=== PATIENT | female | born 1945 | race Caucasian/White ===

== ENCOUNTER 2017-08-21 10:40 | Emergency (ER) | payer OTHER ==
[~2017-08-21] VITALS: Ht 165.1 cm; Wt 97.6 kg
[~2017-08-21 10:40] MED LIST: ASPI81TA82 PO; CLOP75 PO; FOLI1 PO; GABA300C3 PO; LANTUSP SQ; LOSA100T PO; METF-324 PO; METO50CR PO; NAPR-576 PO; SIMV40TA PO; VITA100020 SC
[2017-08-21 10:44] VITALS: BP 177/99; PULSE 83; RESP 16; TEMP 98.1; O2SAT 100
[2017-08-21] MEDS ORDERED: APIX5TAB PO (11:23)
[2017-08-21] MEDS ORDERED: ASPI81CH6 CHEW (11:23)
[2017-08-21] MEDS ORDERED: VITATAB56 PO (11:23)
[2017-08-21] MEDS ORDERED: GABA300C5 PO (11:23)
[2017-08-21] MEDS ORDERED: NOVOLOGP2 SQ (11:23)
[2017-08-21] MEDS ORDERED: CYAN100025 SL (11:23)
[2017-08-21] MEDS ORDERED: TIMO0.5S30 EACH EYE (11:23)
[2017-08-21] MEDS ORDERED: LOSA100T3 PO (11:23)
[2017-08-21] MEDS ORDERED: FOLI400T PO (11:23)
[2017-08-21] MEDS ORDERED: INSU1INJ14 SQ (11:23)
[2017-08-21] MEDS ORDERED: METO50TA PO (11:23)
[2017-08-21] MEDS ORDERED: SIMV40TA PO (11:23)
[2017-08-21] MEDS ORDERED: ROBA500T PO (11:24)
--- NOTE | 2017-08-21 11:25 | PD ---
HPI Chief Complaint: Pain: Acute or Chronic Time Seen by Provider: 11:01 Travel History International Travel<30 days: No Contact w/Intl Traveler<30days: No Traveled to known affect area: No History of Present Illness HPI This is a 71-year-old female with history of chronic low back pain who presents today with acute low back pain not relieved with her current pain medication. Duration 3 days. She denies recent injury or trauma. She reports the pain is similar to previous flares in the past. Pain is described as aching/spasming. Worse with movement and relieved with rest. Pain is localized to the low back radiating down into the left buttocks. She denies fever, incontinence, saddle anesthesia, paresthesia or weakness of the extremities. She is followed by pain management. She is scheduled for another injection to her back. She is currently taking hydrocodone/acetaminophen for her pain. PFSH Past Medical History Hx Anticoagulant Therapy: Yes Arthritis: Yes Asthma: No Atrial Fibrillation: Yes Autoimmune Disease: No Anxiety: No Depression: No Heart Rhythm Problems: No Cancer: No Cardiovascular Problems: Yes (htn on meds, has cardiac stents) High Cholesterol: Yes Chemotherapy: No Chest Pain: No Congestive Heart Failure: No COPD: No Cerebrovascular Accident: Yes (TIA) Diabetes: Yes (TYPE 2) Patient Takes Glucophage: No Endocrine: Yes GERD: Yes Glaucoma: Yes Genitourinary: Yes (HAS BLADDER STIMULATOR) Hepatitis: No Hiatal Hernia: No Hypertension: Yes Immune Disorder: No Kidney Stones: No Medical other: Yes (R. CAROTID ARTERY BLOCKAGE - CLEARED) Musculoskeletal: Yes (ARTHRITIS, MIGUELINA KNEES, LEFT HIP REPLACEMENT; HANDS) Neurologic: Yes (NEUROPATHY BOTH FEET) Psychiatric: No Reproductive: No Respiratory: No Migraines: No Radiation Therapy: No Renal Failure: No Seizures: No Sickle Cell Disease: No Sleep Apnea: No Thyroid Disease: No Ulcer: No Tetanus Vaccination: < 5 Years Influenza Vaccination: Yes ?: Not Past Surgical History Abdominal Surgery: No AICD: No Arteriovenous Shunt: No Body Medical Devices: BLADDER STIMULATOR; LEFT HIP AND BOTH KNEES Cardiac Surgery: Yes (CARDIAC STENTS X 3 2007) Coronary Stent: Yes Ear Surgery: No Endocrine Surgery: No Eye Surgery: Yes (RIGHT CATARACT SURGERY) Genitourinary Surgery: Yes (BLADDER STIMULATOR) Gynecologic Surgery: Yes (SX FOR FERTILITY YEARS AGO) Insulin Pump: No Joint Replacement: Yes (LEFT HIP AND B/L KNEES) Oral Surgery: No Pacemaker: No Thoracic Surgery: No Other Surgery: Yes Social History Alcohol Use: No Tobacco Use: No Substance Use: No Allergies-Medications (Allergen,Severity, Reaction): Coded Allergies: diatrizoate meglumine (Verified Allergy, Severe, Rash, 08/21/17) gadobenic acid (Verified Allergy, Severe, Rash, 08/21/17) gadodiamide (Verified Allergy, Severe, Rash, 08/21/17) gadoteridol (Verified Allergy, Severe, Rash, 08/21/17) iodixanol (Verified Allergy, Severe, Rash, 08/21/17) iohexol (Verified Allergy, Severe, Rash, 08/21/17) Reported Meds & Prescriptions Reported Meds & Active Scripts Active Robaxin (Methocarbamol) 500 Mg Tab 500 Mg PO TID Reported Tresiba Flextouch Pen Inj (Insulin Degludec Inj) 300 unit/3 ML Pen Unknown Dose SQ TID Vitamin D-400 (Cholecalciferol) 400 Unit Tab Unknown Dose PO WEEKLY B-12 (Cyanocobalamin) 1,000 Mcg Subl Unknown Dose SL DAILY Folic Acid 0.4 Mg Tab Unknown Dose PO DAILY Aspirin Low Dose (Aspirin) 81 Mg Chew 81 Mg CHEW DAILY Timolol Opth Drops 0.5 % Soln 1 Drop EACH EYE BID Gabapentin 300 Mg Cap 300 Mg PO BID Losartan-Hydrochlorothiazide 100-12.5 Mg Tab 1 Tab PO DAILY Novolog Inj (Insulin Aspart) 1,000 Unit/10 Ml Vial 5-25 Units SQ ACHS Max dose at bedtime:( )units; sugars less than 70,(0) units; sugars 150-199,(5) units; sugars 200-249,(10) units; sugars 250-299,(15) units; sugars 300-349,(20)units; sugars greater than 349,(25)units Simvastatin 40 Mg Tab 40 Mg PO HS Eliquis (Apixaban) 5 Mg Tab 5 Mg PO BID Metoprolol Tartrate 50 Mg Tab 50 Mg PO DAILY Review of Systems Except as stated in HPI: all other systems reviewed are Neg General / Constitutional: No: Fever Cardiovascular: No: Chest Pain or Discomfort Respiratory: No: Shortness of Breath Gastrointestinal: No: Abdominal Pain Genitourinary: No: Dysuria Skin: No Rash Neurologic: No: Weakness Physical Exam Narrative GENERAL: Alert well-appearing female in no acute distress. Patient is resting comfortably on stretcher. SKIN: Focused skin assessment warm/dry. HEAD: Atraumatic. Normocephalic. CARDIOVASCULAR: Regular rate and rhythm. No murmur appreciated. RESPIRATORY: No accessory muscle use. Clear to auscultation. Breath sounds equal bilaterally. GASTROINTESTINAL: Abdomen soft, non-tender, nondistended. Hepatic and splenic margins not palpable. MUSCULOSKELETAL: No obvious deformities. No clubbing. No cyanosis. No edema. BACK: No CVA tenderness. No point tenderness on palpation of the spine. Tenderness to the left lumbar paraspinous musculature and left buttocks. NEUROLOGICAL: Awake and alert. Motor grossly within normal limits. Normal speech. 5 out of 5 strength in lower extremities. 2+ DTRs and legs. 2+ dorsal pedis pulse bilaterally. PSYCHIATRIC: Appropriate mood and affect; insight and judgment normal. Data Data Last Documented VS Vital Signs Date Time Temp Pulse Resp B/P (MAP) Pulse Ox O2 Delivery O2 Flow Rate FiO2 08/21/17 11:29 147/83 (104) 08/21/17 10:44 98.1 83 16 100 Orders Orders Orphenadrine Inj (Norflex Inj) (08/21/17 11:30) Dexamethasone Inj (Decadron Inj) (08/21/17 11:30) Ed Discharge Order (08/21/17 11:35) [facility] Medical Decision Making Medical Screen Exam Complete: Yes Emergency Medical Condition: Yes Differential Diagnosis Acute on chronic low back pain, sciatica, lumbar strain Narrative Course 71-year-old female with history of chronic low back pain presents with acute back pain unrelieved by her current pain medication. She denies recent injury or trauma. Her physical exam is reassuring. She has left paraspinous muscle tenderness and left buttocks tenderness. No CVA tenderness. No midline spine tenderness. She has normal neurologic exam. Patient is unable to take NSAIDs due to kidney dysfunction per patient. She reports she's been given steroid injections in the past. She will be given a shot of Decadron and Norflex in the ER. Discharged home with muscle relaxers. Instructed to take her current pain medication as prescribed. Follow-up pain management. Diagnosis Primary Impression: Low back pain Qualified Codes: M54.42 - Lumbago with sciatica, left side Referrals: Pain Management Additional Instructions: Take the muscle relaxer as needed. Take her current pain medication as prescribed. Use ice and/or heat for comfort. Follow-up with pain management on Wednesday. Scripts Methocarbamol (Robaxin) 500 Mg Tab 500 MG PO TID for Muscle Spasm, #15 TAB 0 Refills Prov: Gifty Villela 08/21/17 Disposition: 01 DISCHARGE HOME Condition: Stable Gifty Villela Aug 21, 2017 11:25
[2017-08-21 11:29] VITALS: BP 147/83
[2017-08-21] MEDS ORDERED: ORPHENADRINE INJ 60 MG/2 ML AMP IM ONE (11:30)
[2017-08-21] MEDS ORDERED: DEXAMETHASONE SOD PHOS 4 MG/ML VIAL IM ONE (11:30)
== END 2017-08-21 12:03 | disposition home or self-care (01) ==
LOC: PHEFT 10:40
DX: M54.42 Lumbago with sciatica, left side (principal); G89.29 Other chronic pain; I48.91 Unspecified atrial fibrillation; E78.00 Pure hypercholesterolemia, unspecified; E11.9 Type 2 diabetes mellitus without complications; I10 Essential (primary) hypertension; M17.0 Bilateral primary osteoarthritis of knee; Z95.5 Presence of coronary angioplasty implant and graft; Z86.73 Personal history of transient ischemic attack (TIA), and cerebral infarction without residual deficits; Z96.642 Presence of left artificial hip joint
CPT/HCPCS: 96372; 99284; J1100; J2360

== ENCOUNTER 2017-09-24 09:05 | Emergency (ER) | payer OTHER ==
[~2017-09-24] VITALS: Ht 165.1 cm; Wt 96.0 kg
[~2017-09-24 09:05] MED LIST changes: +APIX5TAB PO; +ASPI81CH6 CHEW; -ASPI81TA82 PO; -CLOP75 PO; +CYAN100025 SL; -FOLI1 PO; +FOLI400T PO; -GABA300C3 PO; +GABA300C5 PO; +INSU1INJ14 SQ; -LANTUSP SQ; -LOSA100T PO; +LOSA100T3 PO; -METF-324 PO; -METO50CR PO; +METO50TA PO; -NAPR-576 PO; +NOVOLOGP2 SQ; +ROBA500T PO; +TIMO0.5S30 EACH EYE; -VITA100020 SC; +VITATAB56 PO
[2017-09-24 09:06] VITALS: BP 145/70; PULSE 68; RESP 18; TEMP 97.9; O2SAT 99
--- NOTE | 2017-09-24 09:34 | PD ---
HPI Chief Complaint: Edema Time Seen by Provider: 09:14 Travel History International Travel<30 days: No Contact w/Intl Traveler<30days: No Traveled to known affect area: No History of Present Illness HPI This 71-year-old female presents with complaint of some fluid in her right foot. She noted some swelling of her foot. When she touches it and felt boggy. She has not had fever or chills. There is no history of injury. She does have a history of neuropathy of both feet for 20 years which has been quite painful for her. She is on Eliquis. She says the neuropathy makes it hard for her to walk. She does see Dr. mona coelho for the neuropathy and gets a monthly injection. She goes to pain management. She hasn't was recently diagnosed with atrial fibrillation [facility] Past Medical History Hx Anticoagulant Therapy: Yes (Elaquis) Arthritis: Yes Asthma: No Atrial Fibrillation: Yes Autoimmune Disease: No Anxiety: No Depression: No Heart Rhythm Problems: No Cancer: No Cardiovascular Problems: Yes (stents) High Cholesterol: Yes Chemotherapy: No Chest Pain: No Congestive Heart Failure: No COPD: No Cerebrovascular Accident: Yes (TIA) Diabetes: Yes (TYPE 2) Patient Takes Glucophage: No Diminished Hearing: No Endocrine: Yes Gastrointestinal Disorders: No GERD: Yes Glaucoma: Yes Genitourinary: Yes (HAS BLADDER STIMULATOR) Headaches: No Hepatitis: No Hiatal Hernia: No Heparin Induced Thrombocytopen: No Hypertension: Yes Immune Disorder: No Implanted Vascular Access Dvce: No Kidney Stones: No Medical other: No Musculoskeletal: Yes (ARTHRITIS, MIGUELINA KNEES, LEFT HIP REPLACEMENT; HANDS) Neurologic: Yes (NEUROPATHY BOTH FEET) Psychiatric: No Reproductive: No Respiratory: No Migraines: No Radiation Therapy: No Renal Failure: No Seizures: No Sickle Cell Disease: No Sleep Apnea: No Thyroid Disease: No Ulcer: No Tetanus Vaccination: Unknown ?: Not Past Surgical History Abdominal Surgery: No AICD: No Arteriovenous Shunt: No Body Medical Devices: BLADDER STIMULATOR; LEFT HIP AND BOTH KNEES Cardiac Surgery: Yes (CARDIAC STENTS X 3 2007) Coronary Stent: Yes Ear Surgery: No Endocrine Surgery: No Eye Surgery: Yes (RIGHT CATARACT SURGERY) Genitourinary Surgery: Yes (BLADDER STIMULATOR) Gynecologic Surgery: Yes (SX FOR FERTILITY YEARS AGO) Insulin Pump: No Joint Replacement: Yes (LEFT HIP AND B/L KNEES) Neurologic Surgery: No Oral Surgery: No Pacemaker: No Thoracic Surgery: No Other Surgery: Yes Social History Alcohol Use: No Tobacco Use: No Substance Use: No Allergies-Medications (Allergen,Severity, Reaction): Coded Allergies: diatrizoate meglumine (Verified Allergy, Severe, Rash, 09/24/17) gadobenic acid (Verified Allergy, Severe, Rash, 09/24/17) gadodiamide (Verified Allergy, Severe, Rash, 09/24/17) gadoteridol (Verified Allergy, Severe, Rash, 09/24/17) iodixanol (Verified Allergy, Severe, Rash, 09/24/17) iohexol (Verified Allergy, Severe, Rash, 09/24/17) Reported Meds & Prescriptions Reported Meds & Active Scripts Active Reported Tresiba Flextouch Pen Inj (Insulin Degludec Inj) 300 unit/3 ML Pen Unknown Dose SQ TID Vitamin D-400 (Cholecalciferol) 400 Unit Tab Unknown Dose PO WEEKLY B-12 (Cyanocobalamin) 1,000 Mcg Subl Unknown Dose SL DAILY Folic Acid 0.4 Mg Tab Unknown Dose PO DAILY Aspirin Low Dose (Aspirin) 81 Mg Chew 81 Mg CHEW DAILY Timolol Opth Drops 0.5 % Soln 1 Drop EACH EYE BID Gabapentin 300 Mg Cap 300 Mg PO BID Losartan-Hydrochlorothiazide 100-12.5 Mg Tab 1 Tab PO DAILY Novolog Inj (Insulin Aspart) 1,000 Unit/10 Ml Vial 5-25 Units SQ ACHS Max dose at bedtime:( )units; sugars less than 70,(0) units; sugars 150-199,(5) units; sugars 200-249,(10) units; sugars 250-299,(15) units; sugars 300-349,(20)units; sugars greater than 349,(25)units Simvastatin 40 Mg Tab 40 Mg PO HS Eliquis (Apixaban) 5 Mg Tab 5 Mg PO BID Metoprolol Tartrate 50 Mg Tab 50 Mg PO DAILY Review of Systems General / Constitutional: No: Fever, Chills Eyes: No: Diploplia HENT: No: Headaches Cardiovascular: No: Chest Pain or Discomfort Respiratory: No: Cough, Shortness of Breath Gastrointestinal: No: Vomiting, Diarrhea Genitourinary: No: Urgency, Frequency Musculoskeletal: Positive: Pain Skin: Positive Lumps, No Rash Endocrine: No: Heat Intolerance, Cold Intolerance Hematologic/Lymphatic: No: Easy Bruising Physical Exam Narrative GENERAL well-developed female SKIN: Focused skin assessment warm/dry. HEAD: Atraumatic. Normocephalic. EYES: Pupils equal and round. No scleral icterus. No injection or drainage. ENT: No nasal bleeding or discharge. Mucous membranes pink and moist. NECK: Trachea midline. No JVD. MUSCULOSKELETAL: No obvious deformities. No clubbing. No cyanosis. No edema. There is a blister on the posterior aspect of the right heel. It is not erythematous. It is fluid-filled. It is not tense. There is no tenderness to palpation of the calf or thigh. NEUROLOGICAL: Awake and alert. No obvious cranial nerve deficits. Motor grossly within normal limits. Normal speech. PSYCHIATRIC: Appropriate mood and affect; insight and judgment normal. Data Data Last Documented VS Vital Signs Date Time Temp Pulse Resp B/P (MAP) Pulse Ox O2 Delivery O2 Flow Rate FiO2 09/24/17 09:15 18 99 Room Air 09/24/17 09:06 97.9 68 145/70 (95) MDM Medical Decision Making Medical Screen Exam Complete: Yes Emergency Medical Condition: Yes Medical Record Reviewed: Yes Differential Diagnosis Differential includes edema, blister, neuropathy Narrative Course This appears to be an uncomplicated blister without evidence of infection. I will recommend conservative treatment. Diagnosis Primary Impression: Blister (nonthermal), right foot, initial encounter Additional Instructions: Follow-up with Dr. Chi. He, return if increasing pain or fever Disposition: 01 DISCHARGE HOME Condition: Stable Cresencio Kim MD Sep 24, 2017 09:34
== END 2017-09-24 10:01 | disposition home or self-care (01) ==
LOC: PHED 09:05
DX: S90.821A Blister (nonthermal), right foot, initial encounter (principal); G62.9 Polyneuropathy, unspecified; I10 Essential (primary) hypertension; E11.9 Type 2 diabetes mellitus without complications; E78.00 Pure hypercholesterolemia, unspecified; I48.91 Unspecified atrial fibrillation; H40.9 Unspecified glaucoma; Z86.73 Personal history of transient ischemic attack (TIA), and cerebral infarction without residual deficits; Z79.01 Long term (current) use of anticoagulants
CPT/HCPCS: 99281

== ENCOUNTER 2017-12-15 05:52 | Day surgery (SDC) | payer OTHER ==
[~2017-12-15] VITALS: Ht 165.1 cm; Wt 95.5 kg
[~2017-12-15 05:52] MED LIST changes: -ROBA500T PO
[2017-12-15 06:46] VITALS: BP 142/80; PULSE 64; RESP 20; TEMP 97.8; O2SAT 95
[2017-12-15] MEDS ORDERED: SODIUM CHLOR 0.9% 1000 ML INJ 1,000 ML IV SCH (07:00)
[2017-12-15 07:59] LABS: PROTHROMBIN TIME - PATIENT 10.5 SEC (9.8-11.6)
[2017-12-15 09:05] VITALS: BP 112/79; PULSE 56; RESP 18; TEMP 97.9; O2SAT 93
--- NOTE | 2017-12-15 09:27 | PD.RAD ---
Post Procedure Progress Note Pre Procedure Diagnosis: (1) Neuropathy Post Procedure Diagnosis: (1) Neuropathy Procedure Date: Dec 15, 2017 Supervising Radiologist: Bo Cantu Proceduralist/Assist: Cresencio Fritz, RT(R), Clover Murillo RT(R) Anesthesia: Local Plan of Activity Patient to Unit: ROPU Patient Condition: Good See PACS Report for procedural detail/treatment Bo Cantu MD Dec 15, 2017 09:27
[2017-12-15 09:34] LABS: TOTAL PROTEIN,CSF 123.9 MG/DL (15.0-45.0)
[2017-12-15 09:44] LABS: VOLUME TUBE # 1 1.9 ML
[2017-12-15 10:01] LABS: RBC TUBE #1 8 /MM3; WBC TUBE #1 10 /MM3 (0-10)
[2017-12-15 10:05] LABS: CSF LYMPHOCYTES 54 %; CSF MONOCYTES 44 %; CSF NEUTROPHILS 2 %
[2017-12-15 10:13] LABS: CSF LYMPHOCYTES 47 %; CSF MONOCYTES 16 %; CSF NEUTROPHILS 37 %; RBC TUBE #4 1203 /MM3; WBC TUBE #4 15 /MM3 (0-10)
[2017-12-15 10:24] LABS: SUPERNATE COLOR TUBE #1 CLEAR (CLEAR)
[2017-12-15 10:25] VITALS: BP 117/80; PULSE 84; RESP 18; TEMP 97.8; O2SAT 94
--- NOTE | 2017-12-15 12:20 | RADRPT ---
EXAM DATE/TIME: 12/15/2017 08:07 [place] COMPARISON: No previous studies available for comparison. INDICATIONS : Patient presents with peripheral neuropathy in need of lumbar puncture with opening and closing press ures for evaluation. MEDICAL HISTORY : DM HTN PVD CAD GERD Obesity TIA SURGICAL HISTORY : LT hip LT knee RT ankle Sridhar carpap tunnel Coronary stent Cataract Sridhar hammer toe ENCOUNTER: Initial ACUITY: 1 week PAIN SCORE: 0/10 LOCATION: N/A LUMBAR PUNCTURE TIME: 0820 hours FLUORO TIME: 0.1 minutes IMAGE SERIES: 1 ACCESS LEVEL: L2-3 OPENING PRESSURE: 14.5 cm of water CLOSING PRESSURE: 11.5 cm of water FLUID: 9 cc of clear CSF was collected and sent to the laboratory for analysis. PROCEDURE : 1. Fluoroscopic guided lumbar puncture. 2. Recording of opening pressure. The risks, benefits and alternatives to the procedure were explained and verbal and written consent w as obtained. The site was prepped in sterile fashion. Full sterile technique was used, including ca p, mask, sterile gloves and gown and a large sterile sheet. Hand hygiene and 2% chlorhexidine and/or betadine/alcohol prep was utilized per protocol for cutaneous antisepsis. The skin and subcutaneous tissues were infiltrated with local anesthetic solution. With fluoroscopic guidance the lumbar thecal sac was punctured at the above level described above and the opening pressure was recorded. The above described fluid was removed without difficulty. The patient tolerated the procedure well and there were no complications. CONCLUSION: Uncomplicated fluoroscopically guided lumbar puncture with pressures as above. Bo Cantu MD on December 15, 2017 at 12:02 Board Certified Radiologist. This report was verified electronically.
[2017-12-16 10:30] LABS: CMV DNA QUANT BY RAPID PCR Negative (Negative)
[2017-12-16 12:58] LABS: HSV 1,PCR Negative (Negative)
[2017-12-17 19:52] LABS: CSF CRYPTOCOCCUS ANTIGEN NOT DETECTED (NEGATIVE)
[2017-12-17 23:50] LABS: VZV PCR RESULT <500 (<500 copies)
[2017-12-18 08:59] LABS: CSF CRYPTOCOCCUS AG CONF ND (NOT DETECTD)
== END 2017-12-15 10:37 | disposition home or self-care (01) ==
LOC: HROP 05:52 → HRIP 05:53 → HROP 10:37
PROVIDERS: ATTEND Psychiatry & Neurology Neurology
DX: G62.9 Polyneuropathy, unspecified (principal); I10 Essential (primary) hypertension; I25.10 Atherosclerotic heart disease of native coronary artery without angina pectoris; E11.9 Type 2 diabetes mellitus without complications; K21.9 Gastro-esophageal reflux disease without esophagitis; E53.8 Deficiency of other specified B group vitamins; E66.9 Obesity, unspecified; I73.9 Peripheral vascular disease, unspecified; Z95.5 Presence of coronary angioplasty implant and graft; Z86.73 Personal history of transient ischemic attack (TIA), and cerebral infarction without residual deficits
CPT/HCPCS: 62270; 77003; 82040; 82042; 82784; 82945; 83873; 83916; 84157; 85610; 85730; 86403; 86618; 87070; 87205; 87497; 87529; 87799; 88108; 89051; J7030